=== PATIENT | female | born 1955 | race Caucasian/White ===

== ENCOUNTER 2024-04-18 09:46 | Emergency (ER) | payer MEDICARE, BC ==
[2024-04-18] MEDS: Benzonatate 100 MG Cap PO ONE (12:34)
[2024-04-18 13:36] LABS: APPEARANCE,URINE SLT CLOUDY (Clear); BILIRUBIN,URINE NEGATIVE (Negative); COLOR,URINE YELLOW (Yellow); GLUCOSE,URINE NEGATIVE (Negative); KETONES,URINE NEGATIVE (Negative); LEUKOCYTE ESTERASE,URINE 2+ (Negative); NITRITE,URINE POSITIVE (Negative); OCCULT BLOOD,URINE 2+ (Negative); PH,URINE 5.5 (5.0-8.0); PROTEIN,URINE 1+ (Negative); UROBILINOGEN,URINE 0.2 (0.2-1.0)
[2024-04-18 13:49] LABS: BACTERIA,URINE MANY /hpf (FEW); EPITHELIAL CELLS,URINE 0-5 /hpf (0-5); MUCUS,URINE FEW /hpf (FEW); WBC,URINE 50-75 /hpf (0-5)
== END 2024-04-18 17:30 | disposition home or self-care (01) ==
LOC: JD.ED 09:46
DX: N81.4 Uterovaginal prolapse, unspecified (principal); N30.00 Acute cystitis without hematuria; R05.3 Chronic cough
CPT/HCPCS: 51702; 71046; 81001; 87086; 87428; 99283; A9270; C1758; 87088; 87186; 99284